=== PATIENT | female | born 1930 | race Caucasian/White ===

== ENCOUNTER → 2019-12-12 | Outpatient (CLI) | payer MEDICARE ==
[~2019-12-12] MED LIST: Aspir 8181 MG PO; Augmentin 875-1 EACH PO; LEVSOD75 PO; Norco 5-325 Ta1 EACH PO
== END ==
LOC: LAB 14:27 → LAB SHORT 14:27
DX: R30.0 Dysuria (principal)
CPT/HCPCS: 87077; 87086; 87186